=== PATIENT | male | born 1960 ===

== ENCOUNTER → 2017-08-24 | Day surgery (SDC) | payer OTHER ==
[~2017-08-24] MED LIST: AMLODIPINE BESYL5 MG; COLACE100 MG PO; INTEGRA PLUS C1 EACH; MIRALAX17 GM PO; PERCOCET 5-3251 EACH PO
== END | disposition home or self-care (01) ==
LOC: ADM 08-18 13:30 → CIR.AMB 04:51
DX: K64.8 Other hemorrhoids (principal); K62.89 Other specified diseases of anus and rectum

== ENCOUNTER → 2017-09-09 | Emergency (ER) | payer OTHER ==
[~2017-09-09] VITALS: Ht 172.7 cm; Wt 79.4 kg
== END | disposition home or self-care (01) ==
LOC: ER 21:37
DX: K62.5 Hemorrhage of anus and rectum (principal); Y83.8 Other surgical procedures as the cause of abnormal reaction of the patient, or of later complication, without mention of misadventure at the time of the procedure; Y92.89 Other specified places as the place of occurrence of the external cause